=== PATIENT | male | born 1950 | race Caucasian/White ===

== ENCOUNTER → 2021-04-15 | Outpatient (CLI) | payer MEDICARE, BC | LOC: COL.RAD 12:00 | DX: M47.813 Spondylosis without myelopathy or radiculopathy, cervicothoracic region (principal) ==

== ENCOUNTER → 2021-12-11 | Outpatient (CLI) | payer MEDICARE, BC | LOC: COL.RAD 06:24 | DX: R10.11 Right upper quadrant pain (principal) | CPT/HCPCS: A9537 ==